=== PATIENT | female | born 1950 | race Caucasian/White ===

== ENCOUNTER → 2023-11-27 13:33 | Outpatient (CLI) | payer MEDICARE, OTHER, SELFPAY ==
--- NOTE | 2023-11-27 | DI.NM.S_ITS ---
PROCEDURE: NM EXERCISE TREADMILL NON NUC COMPARISON: None INDICATIONS: Atypical chest pain FINDINGS: Rest ECG sinus rhythm. Yemi protocol 5:59, maximum heart rate 159 bpm (109% peak predicted), maximum blood pressure 212/104, 7.0 METS, DANI -11%. Exercise ECG sinus tachycardia, no ST segment changes or arrhythmias. The patient did not complain of exercise-induced chest pain however did describe dizziness at peak exercise. IMPRESSION: Low risk study. No evidence of exercise-induced ischemia or arrhythmia. Hypertensive response to exercise. Normal heart rate response. Good exercise capacity. Dictated by: Kaela Ortiz D.O. on 11/27/2023 at 16:15 Approved by: Kaela Ortiz D.O. on 11/27/2023 at 16:17
--- NOTE | 2023-11-27 | DI.ECHO.S_ITS ---
[facility] : : [address] : : [place] : : [id number] : : Phone: [phone] Echocardiogram Report + + :Name: BOWEN BETTS Study Date: 11/27/2023 Height: 79 in : :[facility] ReadingLocation: Weight: 148 lb : : Gender: Female BSA: 2.0 m2 : :: 1950 Age: 73 yrs BP: 154/79 mmHg: :Reason For Study: ATYPICAL CHEST PAIN : :Ordering Physician: AURORA RAMOS Performed By: Hamlet Gustafson : :Referring: AURORA RAMOS : + + Interpretation Summary 1. Hyperdynamic left ventricular contractility with ejection fraction greater than 60% and no segmental wall motion abnormalities. No LVH. Impaired relaxation. 2. Normal right ventricular contractility. 3. All cardiac chambers are of normal size. 4. No significant valvular abnormalities. 5. No obvious intracardiac shunts. 6. No obvious intracardiac masses nor thrombi appreciated. 7. No hemodynamically significant pericardial effusion. Prominent anterior fat pad present. 8. No echocardiographic evidence of elevated right-sided filling pressures. Conclusion: Normal biventricular systolic function with no significant valvular abnormalities. Procedure: A two-dimensional transthoracic echocardiogram with color flow and Doppler was performed. The study quality was technically adequate. Most of the acoustic windows were suboptimal, but the best imaging was obtained from the apical window. There is no prior echocardiogram noted for this patient. The patient was in sinus rhythm with heart rates between 69-79 bpm during the exam. Left Ventricle: The left ventricle is normal in size and wall thickness. The ejection fraction is estimated to be 60-65%. Right Ventricle: The right ventricle is normal size. The right ventricular systolic function is normal. Atria: The left atrial size is normal. Right atrial size is normal. The interatrial septum grossly appears intact with no obvious evidence for an atrial septal defect. Mitral Valve: The mitral valve is normal. There is no mitral valve stenosis. There is no mitral regurgitation noted. Aortic Valve: The aortic valve is trileaflet. There is no aortic valve stenosis. No aortic regurgitation is present. Tricuspid Valve: The tricuspid valve is normal. There is no tricuspid stenosis. There is trace tricuspid regurgitation. The right ventricular systolic pressure is estimated to be at least 32.0 mmHg based on an estimated right atrial pressure of 3 mm Hg. Pulmonic Valve: The pulmonic valve is not well visualized. There is no pulmonic valvular stenosis. There is no pulmonic valvular regurgitation. Great Vessels: The aortic root is normal size. The ascending aorta could not be visualized. The IVC is of normal diameter and collapses greater than 50% with a sniff. This suggests a low right atrial pressure of 3 mm Hg. Pericardium/ Pleura There is no pericardial effusion. There is no pleural effusion. MMode/2D Measurements & Calculations LVIDd: 4.4 cm LVOT diam: 2.0 cm LVIDs: 3.3 cm Ao root diam: 3.4 cm FS: 25.8 % Ao Arch Diam (Prox Trans): 2.6 cm IVSd: 0.88 cm LVPWd: 0.84 cm LV river. diameter/BSA (cm/m^2): 2.2 LV sys. diameter/BSA (cm/m^2): 1.6 LA A2 area: 17.0 cm2 RA long axis: 4.0 cm LA A4 area: 17.8 cm2 RA area: 11.4 cm2 LA length (vol): 5.3 cm RA vol: 27.2 ml LA vol: 48.5 ml RA : 13.6 ml/m2 LA vol index: 24.2 ml/m2 IVC diam: 1.8 cm RVD1 (basal): 3.2 cm RVD2 (mid): 2.5 cm TAPSE: 2.1 cm Doppler Measurements & Calculations Ao V2 max: 126.3 cm/sec LVOT Max Bhupinder: 102.9 cm/sec Ao V2 mean: 95.5 cm/sec LV V1 max P.2 mmHg Ao max P.4 mmHg LV V1 VTI: 22.4 cm Ao mean P.9 mmHg KATHLEEN(I,D): 2.4 cm2 Ao V2 VTI: 29.4 cm KATHLEEN(V,D): 2.5 cm2 sev ratio: 0.76 KATHLEEN indexed to BSA (cm^2/m^2): 1.2 MV E max bhupinder: 56.6 cm/sec TR max bhupinder: 269.2 cm/sec MV A max bhupinder: 61.3 cm/sec TR max P.0 mmHg MV E/A: 0.92 PA V2 max: 108.6 cm/sec Med Peak E' Bhupinder: 8.6 cm/sec PA V2 mean: 84.5 cm/sec E/E' med: 6.6 PA mean P.0 mmHg Lat Peak E' Bhupinder: 7.7 cm/sec PA pr(Accel): 39.6 mmHg E/E' lat: 7.4 E/e' average: 7.0 MV dec time: 0.19 sec SV(LVOT): 69.5 ml Reading Physician:
== END ==
PROVIDERS: Family Provider Family Medicine; PCP Family Medicine; Referring Provider Internal Medicine; Visit Provider Internal Medicine
DX: R07.89 Other chest pain (principal)
CPT/HCPCS: 93017; 93306

== ENCOUNTER → 2024-10-02 09:45 | Outpatient (CLI) | payer MEDICARE, OTHER, SELFPAY ==
--- NOTE | 2024-10-02 09:48 | DI.RAD.S_ITS ---
PROCEDURE: XR DEXA AXIAL SKELETON INDICATIONS: POSTMENOPAUSAL COMPARISON: None. FINDINGS: Lumbar Spine: Bone mineral density 0.674 g/cm2, T score -3.4. Left Femoral Neck: Bone mineral density 0.544 g/cm2, T score -2.7. Left Hip: Bone mineral density 0.684 g/cm2, T score -2.1. Fracture Risk Calculation (when applicable): 10-year fracture risk of a major osteoporotic fracture 16 percent and of a hip fracture 5.6 percent. (T score greater or equal to -1.0 to: NORMAL) (T score from -1.1 to -2.4: OSTEOPENIA) (T score less than or equal to -2.5: OSTEOPOROSIS) IMPRESSION: Osteoporosis most severe in the lumbar spine and left femoral neck with moderate to severe osteopenia in the left hip. Follow-up guidelines as follows: Osteoporosis: Consider a repeat DEXA and Vertebral Fracture Assessment (VFA) exam in 2 years or sooner if medically necessary, to reassess this patient's status. Osteopenia: Consider a repeat DEXA in 2-3 years to reassess this patient's status, or if there is a new clinical indication. Normal: Consider a repeat DEXA in 5 years or sooner, or if there is a new clinical indication. All treatment decisions require clinical judgment and consideration of individual patient factors, including patient preferences, comorbidities, previous drug use, risk factors not captured in the FRAX model (e.g., frailty, falls, vitamin D deficiency, increased bone turnover, interval significant decline in bone density ) and possible under- or over-estimation of fracture risk by FRAX. In addition, the NOF Guide recommends that FDA-approved medical therapies be considered in postmenopausal women and men age >= 50 years with a: * Hip or vertebral (clinical or morphometric) fracture * T-score of <=-2.5 at the spine or hip * Ten-year fracture probability by FRAX of >= 3% for hip fracture or >=20% for major osteoporotic fracture. Dictated by: Mary Torres M.D. on 10/02/2024 at 16:00 Approved by: Mary Torres M.D. on 10/02/2024 at 16:01
== END ==
PROVIDERS: Family Provider Family Medicine; PCP Physician Assistant; Referring Provider Physician Assistant; Visit Provider Physician Assistant
DX: Z78.0 Asymptomatic menopausal state (principal); M81.0 Age-related osteoporosis without current pathological fracture; M85.88 Other specified disorders of bone density and structure, other site
CPT/HCPCS: 77080

== ENCOUNTER → 2024-10-02 09:48 | Outpatient (CLI) | payer MEDICARE, OTHER, SELFPAY ==
--- NOTE | 2024-10-02 09:49 | DI.MRI.S_ITS ---
PROCEDURE: MR BRAIN (IAC) WWO CON INDICATIONS: LEFT SIDED VESTIBULAR WEAKNESS,BALANCE DISORDER TECHNIQUE: Noncontrast sagittal T1 spin echo, axial FLAIR, axial gradient echo, axial diffusion and ADC through the brain. Axial thin-slice 3D CISS, coronal TruFISP, axial T1 spin echo with fat saturation through the internal auditory canals. After the administration of contrast, thin slice axial and coronal T1 spin echo with fat saturation through the internal auditory canals, and axial and coronal and sagittal T1 spin echo with fat saturation through the brain. COMPARISON: None. FINDINGS: Image quality: Excellent. Cerebellopontine angles: No cerebellopontine angle masses. Inner ear structures appear normally formed. Normal fluid signal in the cochlear, semicircular canals and vestibules. No abnormal postcontrast enhancement in the cochlea, semicircular canals are vestibules. No suspicious enhancement in the internal auditory canal or along the course of the 7th cranial nerve. CSF spaces: Ventricles are normal in size and shape. No extra-axial fluid collections. Basal cisterns are patent. Brain: No intracranial bleeds or mass effects. Ruth-white matter interface is intact. No abnormal intracranial enhancement. Diffusion weighted images demonstrate no acute ischemic insults. Brainstem appears normal. Normal intravascular flow voids are present. Dural sinuses demonstrate normal postcontrast enhancement. Skull and face: Calvarial marrow signal is normal. Orbits appear normal. Sinuses: Sinuses and mastoids are clear. IMPRESSION: No acute intracranial disease process. No evidence of vestibular schwannoma. Dictated by: Glenys Conner MD, PhD on 10/02/2024 at 11:58 Approved by: Glenys Conner MD, PhD on 10/02/2024 at 12:02
== END ==
PROVIDERS: Family Provider Family Medicine; PCP Physician Assistant; Referring Provider Physician Assistant; Visit Provider Physician Assistant
DX: R26.89 Other abnormalities of gait and mobility (principal); H81.8X2 Other disorders of vestibular function, left ear; Z78.0 Asymptomatic menopausal state; M81.0 Age-related osteoporosis without current pathological fracture; M85.88 Other specified disorders of bone density and structure, other site
CPT/HCPCS: 70553; 77080; A9579

== ENCOUNTER → 2024-10-15 09:21 | Outpatient (CLI) | payer MEDICARE, OTHER, SELFPAY ==
--- NOTE | 2024-10-15 09:23 | DI.MRI.S_ITS ---
PROCEDURE: MR CERVICAL SPINE WO CON INDICATIONS: Chronic neck pain TECHNIQUE: Noncontrast sagittal T1 spin echo and T2 fast spin echo, sagittal STIR, foraminal oblique sagittal T2 fast spin echo, and axial gradient echo or T2 fast spin echo through the cervical spine. COMPARISON: None. FINDINGS: Image quality: Excellent. Alignment and Curvature: There is normal bony alignment. Bone Marrow: Marrow demonstrates normal overall signal. Spinal Cord: Visualized spinal cord has normal size and signal. No cerebellar tonsillar herniation. Paraspinous Soft Tissues: No paravertebral masses. Prevertebral soft tissues are normal in thickness. C2-C3: Loss of disc signal. No central stenosis. No neural foraminal narrowing. No neural compression. C3-C4: Loss of disc signal. No central stenosis. No neural foraminal narrowing. No neural compression. C4-C5: Loss of disc signal and slight loss of disc height. Mild, diffuse disc bulge. Moderate bilateral uncovertebral joint hypertrophy. No central stenosis. Severe bilateral neural foraminal narrowing with compression of the C5 nerve roots. C5-C6: Loss of disc signal and height. Mild, diffuse disc bulge. Moderate bilateral uncovertebral joint hypertrophy. Severe right and moderate left neural foraminal narrowing with compression of the exiting right C6 nerve root. C6-C7: Loss of disc signal. Mild, diffuse disc bulge. No central stenosis. No neural foraminal narrowing. No neural compression. C7-T1: Normal appearance. IMPRESSION: Multilevel degenerative disc disease. Multilevel uncovertebral arthropathy. No severe central canal stenosis. Severe bilateral C4-C5 and right C5-C6 neural foraminal stenosis with compression of the bilateral C5 and right C6 nerve roots. Dictated by: Glenys Conner MD, PhD on 10/15/2024 at 10:54 Approved by: Glenys Conner MD, PhD on 10/15/2024 at 10:57
== END ==
PROVIDERS: Family Provider Family Medicine; PCP Physician Assistant; Referring Provider Physician Assistant; Visit Provider Physician Assistant
DX: M50.321 Other cervical disc degeneration at C4-C5 level (principal); M47.812 Spondylosis without myelopathy or radiculopathy, cervical region; M48.02 Spinal stenosis, cervical region; R42 Dizziness and giddiness; R51.9 Headache, unspecified; G89.29 Other chronic pain
CPT/HCPCS: 72141

== ENCOUNTER → 2024-11-27 09:15 | Outpatient (CLI) | payer MEDICARE, OTHER, SELFPAY ==
--- NOTE | 2024-11-27 09:17 | DI.MRI.S_ITS ---
PROCEDURE: MR LUMBAR SPINE WO CON INDICATIONS: BACK PAIN TECHNIQUE: Noncontrast sagittal T1 spin echo and T2 fast echo, sagittal STIR, and T2 fast spin echo through the lumbar spine. In cases with scoliosis, additional coronal T2 fast spin echo may be performed. COMPARISON: None. FINDINGS: Image quality: Excellent. Alignment and Curvature: There is normal bony alignment. Bone Marrow: Modic type 1 reactive endplate changes adjacent to the L4-L5 disc. Modic type 2 reactive endplate changes adjacent to the L3-L4 disc. No acute vertebral body compression fractures. Spinal Cord: Conus medullaris terminates at the L1 level. Visualized cord demonstrates normal signal and size. Paraspinous Soft Tissues: No paravertebral masses. T12-L1: Normal appearance. L1-L2: Loss of disc signal. Minimal, diffuse disc bulge. No central stenosis. No neural foraminal narrowing. No neural compression. L2-L3: Loss of disc signal. Mild, diffuse disc bulge. Mild narrowing of the central canal. Mild bilateral neural foraminal narrowing. No neural compression. Fissures in the annulus. L3-L4: Loss of disc signal and height. Mild to moderate diffuse disc bulge. Ydji-bp-ydawryoz narrowing of the central canal. Moderate right and severe left neural foraminal narrowing with compression of the left L3 nerve root. L4-L5: Loss of disc signal and height. Mild to moderate diffuse disc bulge. Mild narrowing of the central canal. Moderate right and mild left neural foraminal narrowing. No neural compression. Fissures in the posterior annulus. L5-S1: Loss of disc signal. Mild bilateral facet hypertrophy. No central stenosis. No neural foraminal narrowing. No neural compression. IMPRESSION: Multilevel degenerative disc disease. Mild L5-S1 facet arthropathy. No severe central canal stenosis. Severe left L3-L4 neural foraminal stenosis with compression of the left L3 nerve root. Dictated by: Glenys Conner MD, PhD on 11/27/2024 at 11:54 Approved by: Glenys Conner MD, PhD on 11/27/2024 at 11:57
== END ==
LOC: MRI 09:15
PROVIDERS: Family Provider Family Medicine; PCP Physician Assistant; Referring Provider Physician Assistant; Visit Provider Physician Assistant
DX: M47.816 Spondylosis without myelopathy or radiculopathy, lumbar region (principal); M47.817 Spondylosis without myelopathy or radiculopathy, lumbosacral region; M51.369 Other intervertebral disc degeneration, lumbar region without mention of lumbar back pain or lower extremity pain; M43.16 Spondylolisthesis, lumbar region; M48.061 Spinal stenosis, lumbar region without neurogenic claudication; M54.9 Dorsalgia, unspecified; G89.29 Other chronic pain
CPT/HCPCS: 72148

== ENCOUNTER 2025-02-25 11:30 | Outpatient (RCR) | payer MEDICARE, OTHER, SELFPAY ==
--- NOTE | 2025-02-20 11:30 | PT.OPPOC ---
Addendum entered by Mikey Hercules 04/02/25 11:09: Faxed POC to Sánchez Ly PA-c and Gregorio Pettit MD. Second attempt Original Note: Physical, Occupational & Speech Therapy At [facility] Current Diagnoses Unspecified disorder of vestibular function, unspecified ear (02/20/25) Unspecified disorder of vestibular function, left ear (02/20/25) Dizziness and giddiness (02/20/25) Visit Care Team Role Provider Type Gregorio Pettit MD Family Provider Physician Specialty: Family Practice Address: [address] [place] [address], [id number] Email: [email or web address] Sánchez Ly PA-C Attending Provider Non-Staff Primary Care Provider Referring Provider Specialty: Medical Address: [address] [place] [address], [id number] Email: Plan Of Care PT OP: Balance, Vestibular, Neuro Start: 02/20/25 14:07 Freq: Status: Active Protocol: Document 02/20/25 10:45 DCW (Rec: 02/20/25 14:30 DCW [id number]) Out-Patient Physical Therapy Visit Information Visit Information Visit Type Initial Evaluation Visit Start Time 10:45 Visit Stop Time 11:30 Visit Number 1 Number of WATER POLLUTION CONTROL TECHNICIAN Visits 0 Progress Note Due 03/22/25 Evaluation Information Evaluation Date 02/20/25 Current Condition History of Current Condition Onset Date October 05, 2021 Current Complaints Unsteadiness, difficulty walking/balance, visual motion sensitivity History of Current Pt is a 74 year old female complaining of a three year Condition history of imbalance with gait and visual motion sensitivity. Pt reports symptoms began suddenly on October 05, 2021, experiences nausea, vomiting, and diarrhea, and couldn't walk for a few days. Symptoms then diminished, but ever since then, she has felt very unsteady, especially when up moving around, and has increased sensitivity to visual motion. Pt notes she had a VNG a few weeks ago, but she doesn't remember results other than something going on on the left side , and therapist does not have access to the results at this time. Notes that during the VNG and at other times over the past two years, she has gotten the feeling like she was going to black out when presented with too much visual input. OP-PT Subjective Patient Comments Patient Comments I have neuropathy on top of everything else, so that makes it even more difficult to balance sometimes. Vestibular Assessment Auditory Tests Quintana Test Within normal limits Rinne Test Negative Air Conduction Equal Results Visual Testing Smooth Pursuits WNL Horizontal Smooth Pursuits WNL Vertical Saccades Horizontal WNL Heave Test Positive Left Thrust Head Positive Left Neuro Re-Education Treatment Vestibular Rehabilitation Targets Details Eyes, then head Distance From Target Arm's length Speed as tolerated Position Seated X2 Viewing Details Target and head moving in opposite directions Distance From Target Arm's length Speed as tolerated Position Seated X1 Viewing Details Static target with head turns Distance From Target Arm's length Speed as tolerated Position Seated VOR Retraining Details Target and head moving together Distance From Target Arm's length Speed as tolerated Position Seated Physical Therapy Assessment Rehab Potential Rehabilitation Good Potential Evaluation Complexity Number of Personal 3 or More Factors/ Comorbidities Number of Body 4 or More Systems Impaired Clinical Unstable Presentation at Evaluation Impairments Impairments Activity Tolerance,Balance,Functional Activities, Functional Mobility,Vestibular,Visual Motor Goals Two Impairment Pt experiences severe increased symptoms with increased visual motion Jail Goal (LTG) Pt to tolerate CTSIB position for 30 seconds and no falls reaction LTG Duration 05/21/25 One Impairment Pt does not have an appropriate home exercise program Jail Goal (LTG) Pt to demonstrate ability to correctly perform four home exercises without instruction in order to display independence with HEP. LTG Duration 05/21/25 Assessment Summary Assessment Pt presents with signs and symptoms consistent with left-sided unilateral vestibular dysfunction, likely vestibular neuritis. Pt's subjective history of a sudden onset of 1-2 days of bad symptoms followed by general difficulty with being up and moving around, turning her head, and increased visual motion sensitivity, combined with positive left thrust tests, all without complaints of decreased hearing ability, are all suggestive of VN. Pt will likely benefit from skilled vestibular therapy with focus on adaptation/ habituation exercises, oculomotor training, balance challenges, and improving functional mobility. Physical Therapy Plan Frequency and Duration Frequency of 2x/Week Treatment Plan of Care Start 02/20/25 Date Plan of Care End 05/21/25 Date Therapeutic Interventions Therapeutic Canalithic Repositioning,Gait Training,Home Exercise Interventions Program,Neuromuscular Re-education,Patient/Caregiver Education,Self-Care/Home Management,Soft Tissue Mobilization,Therapeutic Activities,Therapeutic Exercises,Vestibular Rehabilitation Next Visit Focus/Plan Next Note Type Treatment Note Next Visit Plan Vestibular rehabilitation, adaptation/habituation exercises, oculomotor exercises Plan of Care Dates Plan of Care Start Date 02/20/25 Plan of Care End Date 05/21/25 Electronically Signed by: Paulo Molina, PT 02/21/25 0852 If you are in agreement with this Plan of Care, please return a signed and dated copy. I have reviewed this Plan of Care and certify that the skilled therapy services above are required to meet the patient?s needs. Physician Signature Date Printed Name and Credentials Clinical Instructor Signature Printed Name and Credentials
--- NOTE | 2025-02-25 12:20 | PT.OTN ---
Current Diagnoses Unspecified disorder of vestibular function, unspecified ear (02/25/25) Unspecified disorder of vestibular function, left ear (02/25/25) Dizziness and giddiness (02/25/25) Physical Therapy Treatment Note PT OP: Balance, Vestibular, Neuro Start: 02/20/25 14:07 Freq: Status: Active Protocol: Document 02/25/25 11:30 DCW (Rec: 02/25/25 12:20 DCW [id number]) Out-Patient Physical Therapy Visit Information Visit Information Visit Type Treatment Note Visit Start Time 11:30 Visit Stop Time 12:15 Visit Number 2 Number of PLANT ASSOCIATE Visits 0 Progress Note Due 03/22/25 Evaluation Information Evaluation Date 02/20/25 OP-PT Subjective Patient Comments Patient Comments The exercises seem to be fine, I can feel how there's tension in my head and they keep exercising it, but they didn't make me nauseated. Vestibular Assessment Vestibular Function Tests CTSIB Position 1 30 seconds, mild sway CTSIB Position 2 30 seconds, moderate sway CTSIB Position 3 30 seconds, moderate sway CTSIB Position 4 30 seconds, mild sway CTSIB Position 5 Fall Reaction CTSIB Position 6 Fall Reaction Neuro Re-Education Treatment Balance Activities Dynamic Gait Details Hallway walking Comments Head turns (horizontal/vertical), tandem ambulation Vestibular Rehabilitation Laser Targeting Details Eyes follow laser Background [place] board Comments Horizontal/Vertical/diagonal head turns, signature Targets Details Eyes, then head Distance From Target Arm's length Speed as tolerated Position Seated X2 Viewing Details Target and head moving in opposite directions Distance From Target Arm's length Speed as tolerated Position Seated X1 Viewing Details Static target with head turns Distance From Target Arm's length Speed as tolerated Position Seated Comments Horizontal/Vertical VOR Retraining Details Target and head moving together Distance From Target Arm's length Speed as tolerated Position Seated Comments Horizontal/Vertical Physical Therapy Assessment Impairments Impairments Activity Tolerance,Balance,Functional Activities, Functional Mobility,Vestibular,Visual Motor Goals Two Impairment Pt experiences severe increased symptoms with increased visual motion Deputy Director Of Public Works Goal (LTG) Pt to tolerate CTSIB position for 30 seconds and no falls reaction LTG Duration 05/21/25 One Impairment Pt does not have an appropriate home exercise program Fpc Goal (LTG) Pt to demonstrate ability to correctly perform four home exercises without instruction in order to display independence with HEP. LTG Duration 05/21/25 Assessment Summary Assessment Pt feeling fairly comfortable with ongoing HEP, did struggle a bit more with increased intensity. Pt hoping to be able to transfer care to a clinic on [place], as it is very difficult for her to get to this facility regularly. If PT on [place] feels comfortable treating patient, she will be discharged from this facility. Physical Therapy Plan Frequency and Duration Frequency of 2x/Week Treatment Plan of Care Start 02/20/25 Date Plan of Care End 05/21/25 Date Therapeutic Interventions Therapeutic Canalithic Repositioning,Gait Training,Home Exercise Interventions Program,Neuromuscular Re-education,Patient/Caregiver Education,Self-Care/Home Management,Soft Tissue Mobilization,Therapeutic Activities,Therapeutic Exercises,Vestibular Rehabilitation Next Visit Focus/Plan Next Note Type Treatment Note Next Visit Plan Vestibular rehabilitation, adaptation/habituation exercises, oculomotor exercises
--- NOTE | 2025-03-31 10:21 | PT.OPDS ---
Current Diagnoses Unspecified disorder of vestibular function, unspecified ear (02/25/25) Unspecified disorder of vestibular function, left ear (02/25/25) Dizziness and giddiness (02/25/25) Visit Care Team Role Provider Type Gregorio Pettit MD Family Provider Physician Specialty: Family Practice Address: [address] [place] [address], [id number] Email: [email or web address] Sánchez Ly PA-C Attending Provider Non-Staff Primary Care Provider Referring Provider Specialty: Medical Address: [address] [place] [address], [address] Email: Visit Number Visit Number 2 Discharge Summary PT OP: Balance, Vestibular, Neuro Start: 02/20/25 14:07 Freq: Status: Active Protocol: Document 03/31/25 10:19 DCW (Rec: 03/31/25 10:21 DCW [id number]) Out-Patient Physical Therapy Visit Information Visit Information Visit Type Discharge Summary Physical Therapy Assessment Goals Two Impairment Pt experiences severe increased symptoms with increased visual motion Group Home Goal (LTG) Pt to tolerate CTSIB position for 30 seconds and no falls reaction LTG Duration 05/21/25 One Impairment Pt does not have an appropriate home exercise program Ditch Repairer Goal (LTG) Pt to demonstrate ability to correctly perform four home exercises without instruction in order to display independence with HEP. LTG Duration 05/21/25 Assessment Summary Assessment Pt had been planning to change care from this facility to one closer to home if the therapist felt comfortable with her treatment. Pt has now not been seen in over a month, so will be discharged from skilled therapy at this time. Will require a new referral in order to return in the future if needed. Physical Therapy Plan Frequency and Duration Frequency of 2x/Week Treatment Plan of Care Start 02/20/25 Date Plan of Care End 05/21/25 Date Discharge Physical Therapy Discharge Reasons No Longer Attending PT Next Visit Focus/Plan Next Note Type Discharge Summary
== END 2025-04-01 13:37 | disposition home or self-care (01) ==
LOC: PHYS 11:30
PROVIDERS: Family Provider Family Medicine; PCP Physician Assistant; Referring Provider Physician Assistant; Visit Provider Physician Assistant
DX: H81.92 Unspecified disorder of vestibular function, left ear (principal); H81.90 Unspecified disorder of vestibular function, unspecified ear
CPT/HCPCS: 97112; 97163